=== PATIENT | male | born 1960 | race Caucasian/White ===

== ENCOUNTER 2024-06-02 09:09 | Inpatient (IN) | payer OTHER ==
[2024-06-02 09:44] VITALS: BMI 28.5
[2024-06-02] MEDS ORDERED: chlordiazePOXIDE HCL 25 MG CAPSULE PO PRN (10:02)
[2024-06-02] MEDS ORDERED: IBUPROFEN 400 MG TABLET (FP) PO PRN (10:06)
[2024-06-02] MEDS ORDERED: POLYETHYLENE GLYCOL (HEALTHYLAX) 3350 17 GM PACKET PO PRN (10:06)
[2024-06-02] MEDS ORDERED: DICYCLOMINE HCL 10 MG CAPSULE PO PRN (10:06)
[2024-06-02] MEDS ORDERED: BENZONATATE 200 MG CAPSULE PO PRN (10:06)
[2024-06-02] MEDS ORDERED: LOPERAMIDE HCL 2 MG CAPSULE PO PRN (10:06)
[2024-06-02] MEDS ORDERED: ACETAMINOPHEN 325 MG TABLET (FP) PO PRN (10:06)
[2024-06-02] MEDS ORDERED: BISMUTH SUBSALICYLATE 262 MG/15 ML BTL PO PRN (10:06)
[2024-06-02] MEDS ORDERED: ONDANSETRON *ODT* 4 MG TABLET SL PRN (10:06)
[2024-06-02] MEDS ORDERED: MAGNESIUM HYDROX 2400MG/30ML ORAL SUSPENSION 30 ML CUP PO PRN (10:06)
[2024-06-02] MEDS ORDERED: guaiFENesin 600 MG TABLET.ER (FP) PO PRN (10:06)
[2024-06-02] MEDS ORDERED: chlordiazePOXIDE HCL 25 MG CAPSULE ONE (11:14)
[2024-06-02] MEDS: chlordiazePOXIDE HCL 25 MG CAPSULE PO SCH (11:16)
[2024-06-02] MEDS: THIAMINE 100 MG TABLET PO SCH (22:40)
[2024-06-02] MEDS: MELATONIN 5 MG TABLETS PO SCH (22:42)
[2024-06-03] MEDS: hydrOXYzine PAMOATE 25 MG CAPSULE (FP) PO PRN (09:38)
[2024-06-03] MEDS: PRENATAL VITAMINS W/ FOLIC ACID TABLET (FP) PO SCH (09:38)
[2024-06-03] MEDS: METHOCARBAMOL 500 MG TABLET PO PRN (09:38)
[2024-06-03 11:18] LABS: HEMATOCRIT 37.5 % (35.4-49); HEMOGLOBIN 12.4 GM/dL (11.7-16.9); MCH 32.3 pg (25.7-33.7); MEAN CELL VOLUME 97.8 fl (80-96); MEAN PLT VOLUME 9.7 fl (7.5-11.1); PLATELET COUNT 159 10^3/uL (134-434); POTASSIUM 3.9 mmol/L (3.5-5.1); RBC 3.84 M/mm3 (4.00-5.60); RDW 16.4 % (11.9-15.9)
[2024-06-03 11:25] LABS: ALBUMIN 2.9 g/dl (3.4-5.0); BLOOD UREA NITROGEN 21.9 mg/dL (7-18); CALCIUM 9.4 mg/dL (8.5-10.1)
[2024-06-03] MEDS: amLODIPine BESYLATE 2.5 MG TABLET (FP) PO SCH (11:25)
[2024-06-03] MEDS: FLU VACCINE (FLULAVAL) PF 45 MCG/0.5 ML SYRINGE 2024-2025 IM ONE (11:29)
[2024-06-03 11:30] LABS: BILIRUBIN,TOTAL 0.6 mg/dL (0.2-1); TOT PROT 5.9 g/dl (6.4-8.2)
[2024-06-03] MEDS: MAG HYDROX/AL HYDROX/SIMETH 30 ML UNIT-DOSE CUP PO PRN (22:19)
[2024-06-04] MEDS: chlordiazePOXIDE HCL 25 MG CAPSULE PO SCH (05:30)
[2024-06-04] MEDS: BENZOCAINE/MENTHOL (CHLORASEPTIC ) LOZENGE MM PRN (18:50)
[2024-06-04] MEDS: amLODIPine BESYLATE 5 MG TABLET (FP) PO ONE (22:20)
[2024-06-04] MEDS: AMOXICILLIN 500 MG CAPSULE (FP) PO SCH (23:00)
[2024-06-05] MEDS ORDERED: chlordiazePOXIDE HCL 10 MG CAPSULE PO PRN
[2024-06-05] MEDS: chlordiazePOXIDE HCL 10 MG CAPSULE PO SCH (05:26)
[2024-06-05] MEDS: IBUPROFEN 600 MG TABLET (FP) PO PRN (11:57)
[2024-06-05] MEDS: ASPIRIN 325 MG TABLET PO ONE (11:57)
[2024-06-06] MEDS: chlordiazePOXIDE HCL 10 MG CAPSULE PO SCH (05:34)
[2024-06-07] MEDS: chlordiazePOXIDE HCL 10 MG CAPSULE PO ONE (05:46)
[2024-06-07] MEDS: NALOXONE (NYS OPIOID OVERDOSE PROGRAM) 4 MG/0.1 ML SPRAY NS SCH (15:00)
[2024-06-08 06:31] VITALS: RESP 18
[2024-06-08 12:20] VITALS: BP 151/88; PULSE 87; TEMP 97.8
== END 2024-06-08 12:30 | disposition other institution (70) | DRG 775 ==
LOC: YASAS 09:09 → Y6N 10:53
PROVIDERS: ADMIT Allergy & Immunology; ATTEND Surgery
PROC: HZ2ZZZZ Detoxification Services for Substance Abuse Treatment (ICD-10-PCS; principal; 2024-06-02)
DX: F10.230 Alcohol dependence with withdrawal, uncomplicated (principal); F10.282 Alcohol dependence with alcohol-induced sleep disorder; F41.9 Anxiety disorder, unspecified; G47.00 Insomnia, unspecified; I10 Essential (primary) hypertension; J06.9 Acute upper respiratory infection, unspecified; R74.01 Elevation of levels of liver transaminase levels; R79.89 Other specified abnormal findings of blood chemistry; R26.89 Other abnormalities of gait and mobility; Z99.89 Dependence on other enabling machines and devices; Z87.820 Personal history of traumatic brain injury
CPT/HCPCS: 0241U-QW; 36415; 80053; 80305; 85027; 86780; 87811; 90656; 93005; 93010; G0008

== ENCOUNTER 2024-06-08 12:53 | Inpatient (IN) | payer OTHER ==
[2024-06-08] MEDS ORDERED: MAGNESIUM HYDROX 2400MG/30ML ORAL SUSPENSION 30 ML CUP PO PRN (15:55)
[2024-06-08] MEDS ORDERED: LOPERAMIDE HCL 2 MG CAPSULE PO PRN (15:55)
[2024-06-08] MEDS ORDERED: BENZONATATE 200 MG CAPSULE PO PRN (15:55)
[2024-06-08] MEDS ORDERED: ACETAMINOPHEN 325 MG TABLET (FP) PO PRN (15:55)
[2024-06-08] MEDS ORDERED: METHOCARBAMOL 500 MG TABLET PO PRN (15:55)
[2024-06-08] MEDS ORDERED: IBUPROFEN 400 MG TABLET (FP) PO PRN (15:55)
[2024-06-08] MEDS ORDERED: POLYETHYLENE GLYCOL (HEALTHYLAX) 3350 17 GM PACKET PO PRN (15:55)
[2024-06-08] MEDS ORDERED: BENZOCAINE/MENTHOL (CHLORASEPTIC ) LOZENGE MM PRN (15:55)
[2024-06-08] MEDS ORDERED: guaiFENesin 600 MG TABLET.ER (FP) PO PRN (15:55)
[2024-06-08] MEDS ORDERED: NALOXONE HCL 0.4 MG/ML VIAL IVPUSH PRN (15:55)
[2024-06-08] MEDS ORDERED: NALOXONE (NARCAN) HCL 4 MG/0.1 ML SPRAY NS PRN (15:55)
[2024-06-08] MEDS ORDERED: IBUPROFEN 600 MG TABLET (FP) PO PRN (15:55)
[2024-06-08] MEDS ORDERED: MAG HYDROX/AL HYDROX/SIMETH 30 ML UNIT-DOSE CUP PO PRN (15:55)
[2024-06-08] MEDS ORDERED: hydrOXYzine PAMOATE 25 MG CAPSULE (FP) PO PRN (15:55)
[2024-06-08] MEDS: THIAMINE 100 MG TABLET PO SCH (21:15)
[2024-06-08] MEDS: MELATONIN 5 MG TABLETS PO SCH (21:15)
[2024-06-08] MEDS: AMOXICILLIN 500 MG CAPSULE (FP) PO SCH (21:15)
[2024-06-09] MEDS: amLODIPine BESYLATE 2.5 MG TABLET (FP) PO SCH (10:03)
[2024-06-09] MEDS: PRENATAL VITAMINS W/ FOLIC ACID TABLET (FP) PO SCH (10:03)
[2024-06-12 06:59] VITALS: RESP 16; TEMP 97.8
[2024-06-12] MEDS: NALOXONE (NYS OPIOID OVERDOSE PROGRAM) 4 MG/0.1 ML SPRAY NS SCH (10:06)
[2024-06-12 10:37] VITALS: BP 121/77; PULSE 87
== END 2024-06-12 11:30 | disposition home or self-care (01) | DRG 772 ==
LOC: YASAS 12:53 → Y5N 12:54
PROVIDERS: ADMIT Psychiatry & Neurology Pain Medicine; ATTEND Psychiatry & Neurology Pain Medicine
PROC: HZ42ZZZ Group Counseling for Substance Abuse Treatment, Cognitive-Behavioral (ICD-10-PCS; principal; 2024-06-08)
DX: F10.20 Alcohol dependence, uncomplicated (principal); I10 Essential (primary) hypertension; R26.89 Other abnormalities of gait and mobility; Z99.89 Dependence on other enabling machines and devices; Z88.1 Allergy status to other antibiotic agents
CPT/HCPCS: 82140